=== PATIENT | female | born 1995 | race Caucasian/White ===

== ENCOUNTER 2016-08-21 20:18 | Emergency (ER) | payer SELFPAY ==
[2016-08-21] MEDS ORDERED: PROVENTIL 2.5 MG/3 ML NEB IH ONE ×2 (20:58→21:31)
[2016-08-21] MEDS ORDERED: Pepcid 20 MG VIAL IV ONE ×2 (20:58→21:13)
[2016-08-21] MEDS ORDERED: solu-MEDROL 125 MG IV ONE (20:58)
[2016-08-21] MEDS ORDERED: Sodium Chloride 0.9% 1000 ML 1,000 ML IV STA ×2 (20:58→22:25)
--- NOTE | 2016-08-21 20:58 | ERPHSYRPT ---
- History of Present Illness Time Seen by Provider: 08/21/16 20:54 Source: patient, family Exam Limitations: no limitations Patient Subjective Stated Complaint: pt has been sick with a cough off and on since last monday today she started vomiting -fever 102.5 -she has been taking dayquil for her cough and fever Triage Nursing Assessment: pt is awake and alert and able to answer questions in no acute distress Physician History: 21 year old with history of asthma and now cough with vomiting Timing/Duration: day(s) Activities at Onset: none Severity of Dyspnea-Max: moderate Severity of Dyspnea-Current: moderate Possible Cause: frequent episodes, chronic episodes Modifying Factors: Improves With: albuterol inhaler, coughing Associated Symptoms: cough, fever, wheezing Allergies/Adverse Reactions: No Known Drug Allergies Allergy (Verified 08/21/16 20:36) Hx Tetanus, Diphtheria Vaccination/Date Given: (unknown) Hx Influenza Vaccination/Date Given: No Hx Pneumococcal Vaccination/Date Given: No - Review of Systems Constitutional: Fever, No Chills Eyes: No Symptoms Ears, Nose, & Throat: Nose Congestion Respiratory: Cough, No Dyspnea Cardiac: No Chest Pain, No Edema, No Syncope Abdominal/Gastrointestinal: Nausea, Vomiting, No Abdominal Pain, No Diarrhea Genitourinary Symptoms: No Dysuria Musculoskeletal: No Back Pain, No Neck Pain Skin: No Rash Neurological: No Dizziness, No Focal Weakness, No Sensory Changes Psychological: No Symptoms Endocrine: No Symptoms All Other Systems: Reviewed and Negative - Past Medical History Pertinent Past Medical History: Yes Neurological History: No Pertinent History ENT History: No Pertinent History Cardiac History: No Pertinent History Respiratory History: Asthma Endocrine Medical History: No Pertinent History Musculoskeletal History: No Pertinent History GI Medical History: Gallbladder Disease History: No Pertinent History Psycho-Social History: No Pertinent History Female Reproductive Disorders: No Pertinent History Other Medical History: SEASONAL ALLERGIES. PT HAS HX OF REID'S - Past Surgical History Past Surgical History: Yes Neuro Surgical History: No Pertinent History Cardiac: No Pertinent History Respiratory: No Pertinent History Gastrointestinal: Cholecystectomy Genitourinary: No Pertinent History Musculoskeletal: No Pertinent History Female Surgical History: No Pertinent History - Social History Smoking Status: Current every day smoker How long have you smoked: 4 Exposure to second hand smoke: Yes Drug Use: none Patient Lives Alone: No - Female History Hx Last Menstrual Period: 07/25 Hx Now: Yes ("MIGHT BE ") - Nursing Vital Signs Nursing Vital Signs: Initial Vital Signs Temperature 99.1 F Temperature Source Oral Pulse Rate 99 Respiratory Rate 18 Blood Pressure [Right Arm] 107/62 Pain Intensity 0 - Physical Exam General Appearance: no apparent distress, alert Eye Exam: PERRL/EOMI Ears, Nose, Throat Exam: nasal congestion, pharyngeal erythema Neck Exam: normal inspection, supple Respiratory Exam: airway intact, other (mild airway noise/congestion) Cardiovascular/Chest Exam: normal heart sounds, regular rate/rhythm Abdominal/Gastrointestinal Exam: soft, No tenderness, No distention, No mass Rectal Exam: deferred Extremity Exam: non-tender, normal range of motion, normal inspection, no calf tenderness, no pedal edema Peripheral Pulses Exam: carotid (R): 2+, carotid (L): 2+, femoral (R): 2+, femoral (L): 2+, dorsalis-pedis (R): 2+, dorsalis-pedis (L): 2+ Neurologic Exam: alert, oriented x 3, cooperative, preforms laminator II-XII nml as tested, sensation nml, No motor deficits Skin Exam: normal color, warm, No dry SpO2 Interpretation: normal SpO2: 95 Oxygen Delivery: Room Air - Course Nursing assessment & vital signs reviewed: Yes - Radiology Exams Chest X-ray Interpretation: Reviewed by me, Other (some increased lung markings consistent with increased mucous/cuffing) Ordered Tests: Active Orders 24 hr Category Date Time Status Strategy Manager STAT Care 08/21/16 20:58 Active Clean Catch Urine Specimen STAT Care 08/21/16 20:58 Active IV Insertion STAT Care 08/21/16 20:58 Active Pulse Oximetry (ED) STAT Care 08/21/16 20:58 Active CHEST 2 VIEWS (PA AND LAT) Stat Exams 08/21/16 20:59 Taken AMYLASE Stat Lab 08/21/16 21:15 Completed CBC W DIFF Stat Lab 08/21/16 21:15 Completed CMP Stat Lab 08/21/16 21:15 Completed CULTURE, THROAT Stat Lab 08/21/16 20:41 Received HCG,QUALITATIVE URINE Stat Lab 08/21/16 21:00 Completed LIPASE Stat Lab 08/21/16 21:15 Completed Lactic Acid Urgent Lab 08/21/16 20:58 Completed STREP SCREEN-BETA A Stat Lab 08/21/16 20:41 Completed UA W/ MICROSCOPIC Stat Lab 08/21/16 21:00 Completed Respiratory Nebulizer STAT RT 08/21/16 21:01 Completed Medication Summary Generic Name Dose Route Start Last Admin Trade Name Italia PRN Reason Stop Dose Admin Sodium Chloride 1,000 mls @ 999 mls/hr 08/21/16 22:25 08/21/16 22:31 Sodium Chloride 0.9% 1000 Ml IV 08/21/16 23:25 999 mls/hr .Q1H1M STA Administration Discontinued Medications Generic Name Dose Route Start Last Admin Trade Name Italia PRN Reason Stop Dose Admin Albuterol Sulfate 2.5 mg 08/21/16 20:58 08/21/16 21:32 Proventil 2.5 Mg/3 Ml Neb IH 08/21/16 20:59 2.5 mg STAT ONE Administration Albuterol Sulfate Confirm 08/21/16 21:31 Proventil 2.5 Mg/3 Ml Neb Administered 08/21/16 21:32 Dose 2.5 mg IH .STK-MED ONE Famotidine 20 mg 08/21/16 20:58 08/21/16 21:20 Pepcid 20 Mg Vial IV 08/21/16 20:59 20 mg STAT ONE Administration Famotidine Confirm 08/21/16 21:13 Pepcid 20 Mg Vial Administered 08/21/16 21:14 Dose 20 mg IV .STK-MED ONE Sodium Chloride 1,000 mls @ 999 mls/hr 08/21/16 20:58 08/21/16 21:19 Sodium Chloride 0.9% 1000 Ml IV 08/21/16 21:58 999 mls/hr .Q1H1M STA Administration Sodium Chloride Confirm 08/21/16 21:13 Sodium Chloride 0.9% 1000 Ml Administered 08/21/16 21:14 Dose 1,000 mls @ ud .ROUTE .STK-MED ONE Sodium Chloride Confirm 08/21/16 22:27 Sodium Chloride 0.9% 1000 Ml Administered 08/21/16 22:28 Dose 1,000 mls @ ud .ROUTE .STK-MED ONE Methylprednisolone Sodium Succinate 125 mg 08/21/16 20:58 08/21/16 21:20 Solu-Medrol 125 Mg IV 08/21/16 20:59 125 mg STAT ONE Administration Methylprednisolone Sodium Succinate Confirm 08/21/16 21:13 Solu-Medrol 125 Mg Administered 08/21/16 21:14 Dose 125 mg .ROUTE .STK-MED ONE Ondansetron HCl 4 mg 08/21/16 21:01 08/21/16 21:20 Zofran 4 Mg/2 Ml Vial IV 08/21/16 21:02 4 mg STAT ONE Administration Ondansetron HCl Confirm 08/21/16 21:13 Zofran 4 Mg/2 Ml Vial Administered 08/21/16 21:14 Dose 4 mg .ROUTE .STK-MED ONE Lab/Rad Data: Laboratory Result Diagrams 08/21/16 21:15 08/21/16 21:15 Laboratory Results 08/21/16 08/21/16 08/21/16 Range/Units 21:15 21:15 21:00 WBC 10.4 (4.0-10.5) K/mm3 RBC 4.79 (4.1-5.4) M/mm3 Hgb 13.8 (12.0-16.0) gm/dl Hct 41.1 (35-47) % MCV 85.8 (78-100) fl MCH 28.8 (26-32) pg MCHC 33.6 (32-36) g/dl RDW 12.6 (11.5-14.0) % Plt Count 217 (150-450) K/mm3 MPV 9.7 H (6-9.5) fl Gran % 64.2 (36.0-66.0) % Lymphocytes % 24.5 (24.0-44.0) % Monocytes % 7.6 (0.0-12.0) % Eosinophils % 3.5 (0.00-5.0) % Basophils % 0.2 (0.0-0.4) % Basophils # 0.02 (0-0.4) Sodium 140 (136-145) mEq/L Potassium 3.9 (3.5-5.1) mEq/L Chloride 103 (98-107) mEq/L Carbon Dioxide 25.2 (21-32) mEq/L Anion Gap 15.3 H (5-15) MEQ/L BUN 12 (9-20) mg/dL Creatinine 0.93 (0.55-1.30) mg/dl Estimated GFR > 60 ML/MIN Glucose 84 (70-110) MG/DL Lactic Acid (0.4-2.0) Calcium 8.6 (8.5-10.1) mg/dL Total Bilirubin 0.4 (0.2-1.0) mg/dL AST 41 H (15-37) U/L ALT 96 H (12-78) U/L Alkaline Phosphatase 72 (46-116) U/L Serum Total Protein 7.2 (6.4-8.2) gm/dL Albumin 3.8 (3.4-5.0) g/dL Amylase 31 (25-115) U/L Lipase 75 (73-393) U/L Ur Collection Type Urine Color (YELLOW) Urine Appearance (CLEAR) Urine pH (5-6) Ur Specific [place] (1.005-1.025) Urine Protein (Negative) Urine Glucose (UA) (NEGATIVE) mg/dL Urine Ketones (NEGATIVE) Urine Nitrite (NEGATIVE) Urine Bilirubin (NEGATIVE) Urine Urobilinogen (0-1) mg/dL Urine WBC (Auto) (NEGATIVE) Urine RBC (Auto) (0-5) Nabeel/ul Urine Microscopic RBC (0-2) /HPF Urine Microscopic WBC (0-5) /HPF Ur Epithelial Cells (FEW) /HPF Urine Bacteria (NEGATIVE) /HPF Urine Mucus (NEGATIVE) /HPF Urine HCG, Qual NEGATIVE (Negative) Influenza Type A Ag (NEGATIVE) Influenza Type B Ag (NEGATIVE) RSV (PCR) (Negative) Streptococcus Screen (Negative) Specimen Received 08/21/16 08/21/16 08/21/16 Range/Units 21:00 20:58 20:41 WBC (4.0-10.5) K/mm3 RBC (4.1-5.4) M/mm3 Hgb (12.0-16.0) gm/dl Hct (35-47) % MCV (78-100) fl MCH (26-32) pg MCHC (32-36) g/dl RDW (11.5-14.0) % Plt Count (150-450) K/mm3 MPV (6-9.5) fl Gran % (36.0-66.0) % Lymphocytes % (24.0-44.0) % Monocytes % (0.0-12.0) % Eosinophils % (0.00-5.0) % Basophils % (0.0-0.4) % Basophils # (0-0.4) Sodium (136-145) mEq/L Potassium (3.5-5.1) mEq/L Chloride (98-107) mEq/L Carbon Dioxide (21-32) mEq/L Anion Gap (5-15) MEQ/L BUN (9-20) mg/dL Creatinine (0.55-1.30) mg/dl Estimated GFR ML/MIN Glucose (70-110) MG/DL Lactic Acid 1.3 (0.4-2.0) Calcium (8.5-10.1) mg/dL Total Bilirubin (0.2-1.0) mg/dL AST (15-37) U/L ALT (12-78) U/L Alkaline Phosphatase (46-116) U/L Serum Total Protein (6.4-8.2) gm/dL Albumin (3.4-5.0) g/dL Amylase (25-115) U/L Lipase (73-393) U/L Ur Collection Type CLEAN CATCH Urine Color YELLOW (YELLOW) Urine Appearance SLIGHTLY CLOUDY (CLEAR) Urine pH 6.0 (5-6) Ur Specific [place] 1.020 (1.005-1.025) Urine Protein 100 (Negative) Urine Glucose (UA) NEGATIVE (NEGATIVE) mg/dL Urine Ketones NEGATIVE (NEGATIVE) Urine Nitrite NEGATIVE (NEGATIVE) Urine Bilirubin SMALL (NEGATIVE) Urine Urobilinogen 1 (0-1) mg/dL Urine WBC (Auto) TRACE (NEGATIVE) Urine RBC (Auto) LARGE (0-5) Nabeel/ul Urine Microscopic RBC 25-50 (0-2) /HPF Urine Microscopic WBC 0-2 (0-5) /HPF Ur Epithelial Cells MODERATE (FEW) /HPF Urine Bacteria MODERATE (NEGATIVE) /HPF Urine Mucus SLIGHT (NEGATIVE) /HPF Urine HCG, Qual (Negative) Influenza Type A Ag NEGATIVE (NEGATIVE) Influenza Type B Ag NEGATIVE (NEGATIVE) RSV (PCR) NEGATIVE (Negative) Streptococcus Screen (Negative) Specimen Received 08/21/16:2100 08/21/16 Range/Units 20:41 WBC (4.0-10.5) K/mm3 RBC (4.1-5.4) M/mm3 Hgb (12.0-16.0) gm/dl Hct (35-47) % MCV (78-100) fl MCH (26-32) pg MCHC (32-36) g/dl RDW (11.5-14.0) % Plt Count (150-450) K/mm3 MPV (6-9.5) fl Gran % (36.0-66.0) % Lymphocytes % (24.0-44.0) % Monocytes % (0.0-12.0) % Eosinophils % (0.00-5.0) % Basophils % (0.0-0.4) % Basophils # (0-0.4) Sodium (136-145) mEq/L Potassium (3.5-5.1) mEq/L Chloride (98-107) mEq/L Carbon Dioxide (21-32) mEq/L Anion Gap (5-15) MEQ/L BUN (9-20) mg/dL Creatinine (0.55-1.30) mg/dl Estimated GFR ML/MIN Glucose (70-110) MG/DL Lactic Acid (0.4-2.0) Calcium (8.5-10.1) mg/dL Total Bilirubin (0.2-1.0) mg/dL AST (15-37) U/L ALT (12-78) U/L Alkaline Phosphatase (46-116) U/L Serum Total Protein (6.4-8.2) gm/dL Albumin (3.4-5.0) g/dL Amylase (25-115) U/L Lipase (73-393) U/L Ur Collection Type Urine Color (YELLOW) Urine Appearance (CLEAR) Urine pH (5-6) Ur Specific [place]acle (1.005-1.025) Urine Protein (Negative) Urine Glucose (UA) (NEGATIVE) mg/dL Urine Ketones (NEGATIVE) Urine Nitrite (NEGATIVE) Urine Bilirubin (NEGATIVE) Urine Urobilinogen (0-1) mg/dL Urine WBC (Auto) (NEGATIVE) Urine RBC (Auto) (0-5) Nabeel/ul Urine Microscopic RBC (0-2) /HPF Urine Microscopic WBC (0-5) /HPF Ur Epithelial Cells (FEW) /HPF Urine Bacteria (NEGATIVE) /HPF Urine Mucus (NEGATIVE) /HPF Urine HCG, Qual (Negative) Influenza Type A Ag (NEGATIVE) Influenza Type B Ag (NEGATIVE) RSV (PCR) (Negative) Streptococcus Screen NEGATIVE (Negative) Specimen Received - Progress Progress: improved, re-examined Air Movement: good Progress Note: 08/21/16 22:50 pt is feeling well after treatment and wishes ot go home to f/u PCP without further w/u in hosp /ER at this time; discussed that there still could be undetected patholgoy evolving due to hematuria, elevated LFTs and symptoms in [place] but pt is cmost comfortable with DC at this time, also discussed risk and benefit of ab and she wishes to proceed; 08/21/16 22:54 RUQ is notender and no abd tenderness or mass , pt declines further imaging testing in ER at this time. Blood Culture(s) Obtained: No Antibiotics given: Yes Counseled pt/family regarding: lab results, diagnosis, need for follow-up, rad results - Departure Time of Disposition: 22:52 Departure Disposition: Home Clinical Impression: Asthma with exacerbation, URI (upper respiratory infection), Fever, Hematuria, Vomiting, Elevated liver function tests Condition: Good Critical Care Time: No Referrals: BASHIR SAVAGE MD [Primary Care Provider] - Instructions: Fever (Symptom) -- Adult, Bronchitis, Hematuria, Vomiting -- Adult Additional Instructions: We have not found the precise cause for your fever and vomiting at this time, but are treating for exacerbation of asthma with URI and covering with antibiotics for secondary bacterial respiratory infection or early pneumonia. You also have blood in the urine and elevated liver tests to be rechecked by your Dr.- followup with your dr for recheck and further testing. Return meantime if not improving, vomiting continues, short of breath, trouble swallowing , abdominal pain or other concerns. Prescriptions: Promethazine HCl 25 mg Supp [Phenergan 25 mg Supp] 25 mg NV Q8H PRN PRN # 8 supp.rect PRN Reason: Vomiting Azithromycin [Azithromycin 250 mg Pack] 250 mg PO UD #6 tablet Methylprednisolone Packet [Medrol Dosepack] 4 mg PO UD #30 packet
[2016-08-21] MEDS ORDERED: Zofran 4 MG/2 ML VIAL IV ONE (21:01)
[2016-08-21] MEDS ORDERED: Sodium Chloride 0.9% 1000 ML 1,000 ML ONE ×2 (21:13→22:27)
[2016-08-21] MEDS ORDERED: solu-MEDROL 125 MG ONE (21:13)
[2016-08-21] MEDS ORDERED: Zofran 4 MG/2 ML VIAL ONE (21:13)
[2016-08-21 21:24] LABS: BASOPHIL % 0.2 % (0.0-0.4); Eosinophil % 3.5 % (0.00-5.0); Granulocytes % 64.2 % (36.0-66.0); Lymphocytes % 24.5 % (24.0-44.0); Mean Cell Volume 85.8 fl (78-100); Mean Corpuscular Hemoglobin 28.8 pg (26-32); Mean Platelet Volume 9.7 fl (6-9.5); Monocytes % 7.6 % (0.0-12.0); Platelet Count 217 K/mm3 (150-450); Red Blood Count 4.79 M/mm3 (4.1-5.4); Red Cell Distribution Width 12.6 % (11.5-14.0); White Blood Count 10.4 K/mm3 (4.0-10.5)
[2016-08-21 21:49] LABS: COMPLETE URINE MICROSCOPIC? YES; Collection Type CLEAN CATCH
[2016-08-21 21:50] LABS: Bacteria MODERATE /HPF (NEGATIVE); Epithelial Cells MODERATE /HPF (FEW); Mucus SLIGHT /HPF (NEGATIVE); WBC 0-2 /HPF (0-5)
[2016-08-21 21:52] LABS: ALBUMIN 3.8 g/dL (3.4-5.0); ALKALINE PHOSPHATASE 72 U/L (46-116); ANION GAP 15.3 MEQ/L (5-15); BILIRUBIN,TOTAL 0.4 mg/dL (0.2-1.0); BLOOD UREA NITROGEN 12 mg/dL (9-20); CHLORIDE 103 mEq/L (98-107); Carbon Dioxide 25.2 mEq/L (21-32); Glucose 84 MG/DL (70-110); LIPASE 75 U/L (73-393); Potassium 3.9 mEq/L (3.5-5.1); SGOT/AST 41 U/L (15-37); SGPT/ALT 96 U/L (12-78); SODIUM 140 mEq/L (136-145); Total Protein 7.2 gm/dL (6.4-8.2)
[2016-08-21] MEDS ORDERED: KEFLEX 500 MG PO ONE (23:03)
[2016-08-21] MEDS ORDERED: KEFLEX 500 MG ONE (23:12)
[2016-08-21 23:16] VITALS: BP 116/64; PULSE 95; O2SAT 97
--- NOTE | 2016-08-22 08:54 | XRAY ---
Indication: Fever. Asthma. Comparison: July 31, 2015. PA/lateral chest again demonstrates normal heart, lungs, and bony thorax.
== END 2016-08-21 23:32 | disposition home or self-care (01) ==
LOC: ED 20:18
DX: J45.901 Unspecified asthma with (acute) exacerbation (principal); J06.9 Acute upper respiratory infection, unspecified; R50.9 Fever, unspecified; R31.9 Hematuria, unspecified; R11.10 Vomiting, unspecified; R94.5 Abnormal results of liver function studies
CPT/HCPCS: 36000; 36415; 71020; 80053; 81000; 82150; 83605; 83690; 84703; 85025; 87070; 87430; 87631; 93041; 94640; 96360; 96361; 96374; 96375; 99284; J2405; J2930; A9270-GY

== ENCOUNTER 2018-10-16 00:21 | Emergency (ER) | payer OTHER ==
[2018-10-16 00:44] VITALS: BP 166/89; PULSE 89; O2SAT 96
[2018-10-16] MEDS ORDERED: Augmentin 875-125 Tablet PO ONE (01:05)
--- NOTE | 2018-10-16 01:06 | ERPHSYRPT ---
- History of Present Illness Time Seen by Provider: 10/16/18 00:45 Source: patient Exam Limitations: clinical condition Patient Subjective Stated Complaint: Ringing in liberty ears Triage Nursing Assessment: Patient ambulated back to ED and transferred self to bed. Patient A+O X 3. Patient complains of ringing to liberty ears. Patient states liberty ears were draining and constantly ringing and hasn't had any relief. Patient denies pain or discomfort. Physician History: PATIENT COMPLAINS OF INTERMITTENT RINGING IN BOTH EARS FOR 1 WEEK. DENIES PAIN, FEVER SINUS PRESSURE, COUGH OR SORETHROAT. Timing/Duration: intermittent Severity: mild ENT Location: ear (R), ear (L) Prearrival Treatment: no prearrival treatment Modifying Factors: Improves With: nothing Associated Symptoms: denies symptoms Allergies/Adverse Reactions: No Known Drug Allergies Allergy (Unverified 10/16/18 00:39) Home Medications: Ranitidine HCl [Zantac] 150 mg PO DAILY 10/16/18 [History] Hx Influenza Vaccination/Date Given: No Hx Pneumococcal Vaccination/Date Given: No Immunizations Up to Date: Yes - Review of Systems Constitutional: No Symptoms Eyes: No Symptoms Ears, Nose, & Throat: Tinnitus Respiratory: No Symptoms Cardiac: No Symptoms Endocrine: No Symptoms Hematologic/Lymphatic: No Symptoms - Past Medical History Pertinent Past Medical History: No Neurological History: No Pertinent History ENT History: No Pertinent History Cardiac History: No Pertinent History Respiratory History: Asthma Endocrine Medical History: No Pertinent History Musculoskeletal History: No Pertinent History GI Medical History: No Pertinent History History: No Pertinent History Psycho-Social History: No Pertinent History Male Reproductive Disorders: No Pertinent History - Past Surgical History Past Surgical History: Yes Neuro Surgical History: No Pertinent History Cardiac: No Pertinent History Respiratory: No Pertinent History Gastrointestinal: Cholecystectomy Genitourinary: No Pertinent History Musculoskeletal: No Pertinent History Male Surgical History: No Pertinent History - Social History Smoking Status: Never smoker Exposure to second hand smoke: Yes Drug Use: none Patient Lives Alone: No - Nursing Vital Signs Nursing Vital Signs: Initial Vital Signs Pulse Rate 89 10/16/18 00:39 Respiratory Rate 18 10/16/18 00:39 Blood Pressure 166/89 10/16/18 00:39 O2 Sat by Pulse Oximetry 96 10/16/18 00:39 Pain Scale Pain Intensity 0 - Physical Exam General Appearance: no apparent distress Eye Exam: bilateral eye: normal inspection, PERRL, EOMI Ear Exam: right ear: TM red, left ear: auricle normal, canal normal Throat Exam: normal, pharynx normal Neck Exam: normal inspection Cardiovascular/Respiratory Exam: chest non-tender, normal breath sounds SpO2: 96 Ordered Tests: Medication Summary Discontinued Medications Generic Name Dose Route Start Last Admin Trade Name Italia PRN Reason Stop Dose Admin Amoxicillin/Clavulanate Potassium 875 mg 10/16/18 01:05 10/16/18 01:14 Augmentin 875-125 Tablet PO 10/16/18 01:06 875 mg STAT ONE Administration Amoxicillin/Clavulanate Potassium Confirm 10/16/18 01:13 Augmentin 875-125 Tablet Administered 10/16/18 01:14 Dose 875 mg .ROUTE .STK-MED ONE - Progress Progress Note: 10/16/18 01:21 AUGMENTIN 875MG ORALLY Counseled pt/family regarding: diagnosis, need for follow-up - Departure Departure Disposition: Home Clinical Impression: RIGHT OTITIS MEDIA Condition: Stable Critical Care Time: No Referrals: MARIPOSA SILVA [Primary Care Provider] - Additional Instructions: ANTIBIOTIC AUGMENTIN 875MG TWICE DAILY FOR 10 DAYS. TYLENOL OR MOTRIN NEEDED FOR PAIN OR FEVER. CONSULT YOUR PRIMARY CARE PROVIDER FOR FOLLOWUP IN 1 WEEK. Prescriptions: Amox Tr/Potass Clav. 875 mg [Augmentin 875-125 Tablet] 875 mg PO BID #20 tablet
[2018-10-16] MEDS ORDERED: Augmentin 875-125 Tablet ONE (01:13)
== END 2018-10-16 01:42 | disposition home or self-care (01) ==
LOC: EDSEX → ED 00:21 → MERGE 00:21 → ED 01:42
DX: H66.91 Otitis media, unspecified, right ear (principal)
CPT/HCPCS: 99283; A9270-GY

== ENCOUNTER 2018-12-23 23:22 | Emergency (ER) | payer OTHER ==
[2018-12-24] MEDS ORDERED: Sodium Chloride 0.9% 1000 ML 1,000 ML IV STA (00:49)
[2018-12-24] MEDS ORDERED: Sodium Chloride 0.9% 1000 ML 1,000 ML ONE (00:56)
[2018-12-24 01:47] LABS: BASOPHIL % 0.5 % (0.0-0.4); Basophil (Absolute #) 0.04 (0-0.4); Eosinophil % 7.8 % (0.00-5.0); Eosinophil (Absolute #) 0.64 (0-0.5); Granulocytes % 46.2 % (36.0-66.0); Hematocrit 39.9 % (35-47); Hemoglobin 13.4 gm/dl (12.0-16.0); Lymphocyte (Absolute #) 3.19 (1.0-4.6); Lymphocytes % 38.8 % (24.0-44.0); Mean Cell Volume 84.5 fl (78-100); Mean Corpuscular Hemoglobin 28.4 pg (26-32); Mean Corpuscular Hgb Concent. 33.6 g/dl (32-36); Mean Platelet Volume 10.1 fl (6-9.5); Monocyte (Absolute #) 0.55 (0.0-1.3); Monocytes % 6.7 % (0.0-12.0); Platelet Count 226 K/mm3 (150-450); Red Blood Count 4.72 M/mm3 (4.1-5.4); Red Cell Distribution Width 13.4 % (11.5-14.0); White Blood Count 8.2 K/mm3 (4.0-10.5)
[2018-12-24 01:56] LABS: INR 1.07 (0.8-3.0); PROTIME 12.1 SECONDS (9.95-12.35)
[2018-12-24 02:02] LABS: ALKALINE PHOSPHATASE 61 U/L (38-126); ANION GAP 12.5 MEQ/L (5-15); BLOOD UREA NITROGEN 10 mg/dL (7-17); CHLORIDE 110 mmol/L (98-107); Calcium 9.5 mg/dL (8.4-10.2); Carbon Dioxide 21 mmol/L (22-30); Creatinine 1 0.66 mg/dL (0.52-1.04); Glucose 144 mg/dL (74-106); Potassium 4.6 mmol/L (3.5-5.1); SGOT/AST 49 U/L (14-36); SGPT/ALT 76 U/L (0-35); SODIUM 139 mmol/L (137-145); Total Protein 7.1 g/dL (6.3-8.2)
[2018-12-24 02:07] LABS: Appearance CLEAR (CLEAR); Bilirubin NEGATIVE (NEGATIVE); Blood MODERATE Ery/ul (0-5); Glucose NEGATIVE (NEGATIVE); Ketones NEGATIVE (NEGATIVE); Leukocyte Esterase NEGATIVE (NEGATIVE); Mucus SLIGHT /HPF (NEGATIVE); Nitrite NEGATIVE (NEGATIVE); Protein,Urine Dip NEGATIVE (Negative); Urobilinogen NEGATIVE mg/dL (0-1)
[2018-12-24 02:07] LABS: Erythrocyte Sedimentation Rate 3 mm/hr (0-20)
[2018-12-24] MEDS ORDERED: BENADRYL 50 MG/ML IV ONE (02:12)
[2018-12-24] MEDS ORDERED: SUBLIMAZE 100 MCG/2 ML IV ONE (02:12)
[2018-12-24] MEDS ORDERED: Reglan 10 MG/2 ML IV ONE (02:12)
[2018-12-24] MEDS ORDERED: BENADRYL 50 MG/ML ONE (02:16)
[2018-12-24] MEDS ORDERED: SUBLIMAZE 100 MCG/2 ML ONE (02:17)
[2018-12-24] MEDS ORDERED: Reglan 10 MG/2 ML ONE (02:17)
[2018-12-24 02:23] LABS: Amphetamine,Urine NEGATIVE (NEGATIVE); Barbiturate,Urine NEGATIVE (NEGATIVE); Benzodiazepine,Urine NEGATIVE (NEGATIVE); Cocaine,Urine NEGATIVE (NEGATIVE); Methadone,Urine NEGATIVE (NEGATIVE); Opiate,Urine NEGATIVE (NEGATIVE); PCP,Urine NEGATIVE (NEGATIVE); THC,Urine NEGATIVE (NEGATIVE)
--- NOTE | 2018-12-24 03:28 | ERPHSYRPT ---
- History of Present Illness Time Seen by Provider: 12/23/18 23:55 Source: patient Exam Limitations: no limitations Patient Subjective Stated Complaint: pt c/o REID, dull throbbing pain in frontal lobe radiating to posterior head. states having some dizziness and feel nauseous. had to leave work because it got so bad. "I took 10 extra strength tylenol today throughout the day starting about 7am" Triage Nursing Assessment: A/O, speech clear, resp easy. skin pain warm and dry. denies visual disturbances. states appetite appropriate. Physician History: C/o diffuse, bilateral, frontal headaches, nausea since this afternoon, denies vomiting, but nauseated, no fever, no focal weakness, numbness, slurres speech or visual changes. She had a history of migraine headaches in the past, c/o more severe pain now. She denies sore throat, productive cough, chest pain, SOB , other than dizziness. Timing/Duration: today Quality: throbbing Head Pain Location: frontal Severity of Pain-Max: severe Severity of Pain-Current: severe Recent Head Trauma: no recent headache/trauma Modifying Factors: Improves With: exposure to light Associated Symptoms: dizziness, nausea/vomiting Previous symptoms: different symptoms Allergies/Adverse Reactions: No Known Drug Allergies Allergy (Verified 10/16/18 07:04) Home Medications: Albuterol Common Canister [Proventil Common Canister] 12/24/18 [History] Albuterol Sulfate [Ventolin Hfa] 18 gm IH Q4H PRN PRN 12/24/18 [History] Fluticasone Propionate [Allergy Relief] 50 mcg IH Q4-6HPRN PRN 12/24/18 [History ] Loratadine 10 mg PO DAILY 12/24/18 [History] Hx Tetanus, Diphtheria Vaccination/Date Given: Yes Hx Influenza Vaccination/Date Given: No Hx Pneumococcal Vaccination/Date Given: No Immunizations Up to Date: Yes - Review of Systems Constitutional: No Symptoms Eyes: No Symptoms Ears, Nose, & Throat: Nose Congestion Respiratory: No Symptoms Cardiac: No Symptoms Abdominal/Gastrointestinal: Nausea Genitourinary Symptoms: No Symptoms Musculoskeletal: No Symptoms Skin: No Symptoms Neurological: Dizziness, Headache, No Focal Weakness, No Gait Changes Psychological: No Symptoms All Other Systems: Reviewed and Negative - Past Medical History Pertinent Past Medical History: Yes Neurological History: No Pertinent History ENT History: No Pertinent History Cardiac History: No Pertinent History Respiratory History: Asthma Endocrine Medical History: No Pertinent History Musculoskeletal History: No Pertinent History GI Medical History: No Pertinent History, Gallbladder Disease History: No Pertinent History Psycho-Social History: No Pertinent History Female Reproductive Disorders: No Pertinent History Other Medical History: SEASONAL ALLERGIES. PT HAS HX OF REID'S - Past Surgical History Past Surgical History: Yes Neuro Surgical History: No Pertinent History Cardiac: No Pertinent History Respiratory: No Pertinent History Gastrointestinal: Cholecystectomy Genitourinary: No Pertinent History Musculoskeletal: No Pertinent History Female Surgical History: No Pertinent History - Social History Smoking Status: Current every day smoker How long have you smoked: 4 Exposure to second hand smoke: Yes Drug Use: none Patient Lives Alone: No - Female History Hx Last Menstrual Period: unknown Hx Now: No (very irregular PCOS) - Nursing Vital Signs Nursing Vital Signs: Initial Vital Signs Temperature 98.1 F 12/23/18 23:23 Pulse Rate 82 12/23/18 23:23 Respiratory Rate 16 12/23/18 23:23 Blood Pressure 147/90 12/23/18 23:23 O2 Sat by Pulse Oximetry 97 12/23/18 23:23 Pain Scale Pain Intensity 6 - Physical Exam General Appearance: no apparent distress Eye Exam: PERRL/EOMI, eyes nml inspection Ears, Nose, Throat Exam: normal ENT inspection, pharynx normal, moist mucous membranes Neck Exam: normal inspection, non-tender, supple, full range of motion, No carotid bruit Respiratory Exam: normal breath sounds, lungs clear, airway intact, No chest tenderness Cardiovascular Exam: regular rate/rhythm, normal heart sounds, normal peripheral pulses, No murmur Gastrointestinal/Abdominal Exam: soft, normal bowel sounds, No tenderness Back Exam: normal inspection, No CVA tenderness billing analyst Exam: normal speech, PERRL Coordination/Gait Exam: normal finger to nose Motor/Sensory Exam: no motor deficit DTR Exam: bicep (R): 2+, bicep (L): 2+, knee (R): 2+, knee (L): 2+, ankle (R): 2 +, ankle (L): 2+ Skin Exam: normal color, warm, dry, No rash, No petechiae, No cyanosis, No diaphoresis Lymphatic Exam: No adenopathy SpO2 Interpretation: normal SpO2: 93 O2 Delivery: Room Air - Course Nursing assessment & vital signs reviewed: Yes EKG Interpreted by Me: RATE - CT Exams Head CT Interpretation: Negative, Tele-radiologist Report Ordered Tests: Active Orders 24 hr Category Date Time Status IV Insertion STAT Care 12/24/18 00:49 Active HEAD WITHOUT CONTRAST [CT] Stat Exams 12/24/18 00:53 Taken CBC W DIFF Stat Lab 12/24/18 01:45 Completed CMP Stat Lab 12/24/18 01:45 Completed Erythrocyte Sedimentation Rate Stat Lab 12/24/18 01:45 Completed HCG,QUALITATIVE URINE Stat Lab 12/24/18 02:01 Completed PROTIME WITH INR Stat Lab 12/24/18 01:45 Completed UA W/RFX UR CULTURE Stat Lab 12/24/18 02:01 Completed Urine Triage Profile Stat Lab 12/24/18 02:01 Completed Medication Summary Discontinued Medications Generic Name Dose Route Start Last Admin Trade Name Freq PRN Reason Stop Dose Admin Diphenhydramine HCl 25 mg 12/24/18 02:12 12/24/18 02:23 Benadryl 50 Mg/Ml IV 12/24/18 02:13 25 mg STAT ONE Administration Diphenhydramine HCl Confirm 12/24/18 02:16 Benadryl 50 Mg/Ml Administered 12/24/18 02:17 Dose 50 mg .ROUTE .STK-MED ONE Fentanyl Citrate 50 mcg 12/24/18 02:12 12/24/18 02:34 Sublimaze 100 Mcg/2 Ml IV 12/24/18 02:13 50 mcg STAT ONE Administration Fentanyl Citrate Confirm 12/24/18 02:17 Sublimaze 100 Mcg/2 Ml Administered 12/24/18 02:18 Dose 100 mcg .ROUTE .STK-MED ONE Sodium Chloride 1,000 mls @ 999 mls/hr 12/24/18 00:49 12/24/18 02:58 Sodium Chloride 0.9% 1000 Ml IV 12/24/18 01:49 Infused .Q1H1M STA Infusion Sodium Chloride Confirm 12/24/18 00:56 Sodium Chloride 0.9% 1000 Ml Administered 12/24/18 00:57 Dose 1,000 mls @ ud .ROUTE .STK-MED ONE Metoclopramide HCl 10 mg 12/24/18 02:12 12/24/18 02:19 Reglan 10 Mg/2 Ml IV 12/24/18 02:13 10 mg STAT ONE Administration Metoclopramide HCl Confirm 12/24/18 02:17 Reglan 10 Mg/2 Ml Administered 12/24/18 02:18 Dose 10 mg .ROUTE .STK-MED ONE Lab/Rad Data: Laboratory Result Diagrams 12/24/18 01:45 12/24/18 01:45 Laboratory Results 12/24/18 12/24/18 12/24/18 Range/Units 02:01 02:01 02:01 WBC (4.0-10.5) K/mm3 RBC (4.1-5.4) M/mm3 Hgb (12.0-16.0) gm/dl Hct (35-47) % MCV (78-100) fl MCH (26-32) pg MCHC (32-36) g/dl RDW (11.5-14.0) % Plt Count (150-450) K/mm3 MPV (6-9.5) fl Gran % (36.0-66.0) % Eos # (Auto) (0-0.5) Absolute Lymphs (auto) (1.0-4.6) Absolute Monos (auto) (0.0-1.3) Lymphocytes % (24.0-44.0) % Monocytes % (0.0-12.0) % Eosinophils % (0.00-5.0) % Basophils % (0.0-0.4) % Absolute Granulocytes (1.4-6.9) Basophils # (0-0.4) ESR (0-20) mm/hr PT (9.95-12.35) SECONDS INR (0.8-3.0) Sodium (137-145) mmol/L Potassium (3.5-5.1) mmol/L Chloride (98-107) mmol/L Carbon Dioxide (22-30) mmol/L Anion Gap (5-15) MEQ/L BUN (7-17) mg/dL Creatinine (0.52-1.04) mg/dL Estimated GFR ML/MIN Glucose (74-106) mg/dL Calcium (8.4-10.2) mg/dL Total Bilirubin (0.2-1.3) mg/dL AST (14-36) U/L ALT (0-35) U/L Alkaline Phosphatase (38-126) U/L Serum Total Protein (6.3-8.2) g/dL Albumin (3.5-5.0) g/dL Urine Color YELLOW (YELLOW) Urine Appearance CLEAR (CLEAR) Urine pH 5.0 (5-6) Ur Specific Parnell 1.020 (1.005-1.025) Urine Protein NEGATIVE (Negative) Urine Ketones NEGATIVE (NEGATIVE) Urine Blood MODERATE (0-5) Nabeel/ul Urine Nitrite NEGATIVE (NEGATIVE) Urine Bilirubin NEGATIVE (NEGATIVE) Urine Urobilinogen NEGATIVE (0-1) mg/dL Ur Leukocyte Esterase NEGATIVE (NEGATIVE) Urine WBC (Auto) NONE (0-5) /HPF Urine RBC (Auto) 6-10 (0-2) /HPF U Epithel Cells (Auto) NONE (FEW) /HPF Urine Bacteria (Auto) NONE (NEGATIVE) /HPF Urine Mucus (Auto) SLIGHT (NEGATIVE) /HPF Urine Culture Reflexed NO (NO) Urine Glucose NEGATIVE (NEGATIVE) mg/dL Urine HCG, Qual NEGATIVE (Negative) Urine Opiates Level NEGATIVE (NEGATIVE) Ur Methadone NEGATIVE (NEGATIVE) Urine Barbiturates NEGATIVE (NEGATIVE) Ur Phencyclidine (PCP) NEGATIVE (NEGATIVE) Urine Amphetamine NEGATIVE (NEGATIVE) U Benzodiazepine Level NEGATIVE (NEGATIVE) Urine Cocaine NEGATIVE (NEGATIVE) Urine Marijuana (THC) NEGATIVE (NEGATIVE) 12/24/18 12/24/18 12/24/18 Range/Units 01:45 01:45 01:45 WBC 8.2 (4.0-10.5) K/mm3 RBC 4.72 (4.1-5.4) M/mm3 Hgb 13.4 (12.0-16.0) gm/dl Hct 39.9 (35-47) % MCV 84.5 (78-100) fl MCH 28.4 (26-32) pg MCHC 33.6 (32-36) g/dl RDW 13.4 (11.5-14.0) % Plt Count 226 (150-450) K/mm3 MPV 10.1 H (6-9.5) fl Gran % 46.2 (36.0-66.0) % Eos # (Auto) 0.64 H (0-0.5) Absolute Lymphs (auto) 3.19 (1.0-4.6) Absolute Monos (auto) 0.55 (0.0-1.3) Lymphocytes % 38.8 (24.0-44.0) % Monocytes % 6.7 (0.0-12.0) % Eosinophils % 7.8 H (0.00-5.0) % Basophils % 0.5 (0.0-0.4) % Absolute Granulocytes 3.80 (1.4-6.9) Basophils # 0.04 (0-0.4) ESR 3 (0-20) mm/hr PT 12.1 (9.95-12.35) SECONDS INR 1.07 (0.8-3.0) Sodium 139 (137-145) mmol/L Potassium 4.6 (3.5-5.1) mmol/L Chloride 110 H (98-107) mmol/L Carbon Dioxide 21 L (22-30) mmol/L Anion Gap 12.5 (5-15) MEQ/L BUN 10 (7-17) mg/dL Creatinine 0.66 (0.52-1.04) mg/dL Estimated GFR > 60.0 ML/MIN Glucose 144 H (74-106) mg/dL Calcium 9.5 (8.4-10.2) mg/dL Total Bilirubin 0.50 (0.2-1.3) mg/dL AST 49 H (14-36) U/L ALT 76 H (0-35) U/L Alkaline Phosphatase 61 (38-126) U/L Serum Total Protein 7.1 (6.3-8.2) g/dL Albumin 4.0 (3.5-5.0) g/dL Urine Color (YELLOW) Urine Appearance (CLEAR) Urine pH (5-6) Ur Specific Parnell (1.005-1.025) Urine Protein (Negative) Urine Ketones (NEGATIVE) Urine Blood (0-5) Nabeel/ul Urine Nitrite (NEGATIVE) Urine Bilirubin (NEGATIVE) Urine Urobilinogen (0-1) mg/dL Ur Leukocyte Esterase (NEGATIVE) Urine WBC (Auto) (0-5) /HPF Urine RBC (Auto) (0-2) /HPF U Epithel Cells (Auto) (FEW) /HPF Urine Bacteria (Auto) (NEGATIVE) /HPF Urine Mucus (Auto) (NEGATIVE) /HPF Urine Culture Reflexed (NO) Urine Glucose (NEGATIVE) mg/dL Urine HCG, Qual (Negative) Urine Opiates Level (NEGATIVE) Ur Methadone (NEGATIVE) Urine Barbiturates (NEGATIVE) Ur Phencyclidine (PCP) (NEGATIVE) Urine Amphetamine (NEGATIVE) U Benzodiazepine Level (NEGATIVE) Urine Cocaine (NEGATIVE) Urine Marijuana (THC) (NEGATIVE) - Progress Progress: improved Air Movement: good Progress Note: 12/24/18 03:37 Pt was started on IV Benadryl, Reglan 10 mg IV Fentanyl, states, he feels better , did not vomit afebrile, She was afebrile to , discussed our findings, she is being discharged home on PO Amoxicillin to rest x 3-4 days, drink polenty of fluids, and gargle fgrequently with saline solution. Blood Culture(s) Obtained: No Antibiotics given: No Counseled pt/family regarding: lab results, diagnosis, need for follow-up, rad results - Departure Departure Disposition: Home Clinical Impression: Headache Qualifiers: Headache type: unspecified Headache chronicity pattern: acute headache Intractability: not intractable Qualified Code(s): R51 - Headache Sinusitis Qualifiers: Sinusitis location: unspecified location Chronicity: acute Recurrence: non- recurrent Qualified Code(s): J01.90 - Acute sinusitis, unspecified Condition: Stable Critical Care Time: No Referrals: MARIPOSA SILVA [Primary Care Provider] - Instructions: Headache, Adult (DC), Sinusitis, Adult (DC) Additional Instructions: Rest x 1-2 days, drink plenty of fluids, and follow up with your physician this week, return if severe headaches, vomiting, lethargy, fever> 102 F! Prescriptions: Butalbital/Acetaminophen [Acetaminophn-Butalbital 325-50] 1 each PO Q6H PRN PRN #10 tablet PRN Reason: Headache Amoxicillin 875 mg PO BID #20 tablet Cetirizine HCl [Zyrtec] 10 mg PO DAILY #30 tab.chew
[2018-12-24 04:04] VITALS: BP 127/75; PULSE 81; O2SAT 95
--- NOTE | 2018-12-24 12:34 | XRAY ---
Exam: CT of the head without IV contrast from 12/24/2018. CTDI: 68.81 Comparison: None. Indication: 23-year-old female with severe headaches, complains of dull, throbbing pain within frontal lobe radiating to posterior head, and dizziness with nausea, denies visual disturbances, history of polycystic ovaries. Technique: Non-IV contrast axial images were obtained through the brain. Reconstructed coronal and sagittal images were created and reviewed. Findings: The ventricles appear of normal size and configuration. No focal mass effect or midline shift is seen. I see no evidence of acute intracranial bleed or abnormal extra-axial fluid collection. The olsen matter-white matter interfaces appear unremarkable. No focal low attenuation edema or territorial low attenuation infarct is seen. The cortical sulci and basilar cisterns appear unremarkable. Soft tissue or fluid density is seen filling the entire visualized upper right maxillary sinus. The remainder of the visualized paranasal sinuses appears unremarkable. The mastoid air cells are clear without effusion. The calvarium of the skull appears intact. Impression: 1. No acute intracranial bleed or other acute intracranial process is seen. 2. Soft tissue or fluid density fills the entire visualized upper portion of the right maxillary sinus. This is a consistent with acute or chronic sinusitis. Correlate clinically.
== END 2018-12-24 04:10 | disposition home or self-care (01) ==
LOC: ED 23:22
DX: R51 Headache (principal); J01.90 Acute sinusitis, unspecified; R11.0 Nausea; Z79.899 Other long term (current) drug therapy; R42 Dizziness and giddiness
CPT/HCPCS: 36415; 70450; 80053; 80307; 81001; 84703; 85025; 85610; 85652; 96360; 96374; 96375; 99284; J1200; J3010

== ENCOUNTER 2019-04-02 17:17 | Emergency (ER) | payer BC, OTHER ==
--- NOTE | 2019-04-02 17:23 | ERPHSYRPT ---
- History of Present Illness Time Seen by Provider: 04/02/19 17:23 Source: patient Exam Limitations: no limitations Physician History: 23 y/o white female with h/o chronic headaches with associated dizziness, presents with same today. pt seen here 12/24/18 for same issue. pt had negative ct head at that time. pt denies head trauma. pt has a h/o seasonal allergies. pt denies h/o htn Timing/Duration: week(s) (1) Quality: aching Head Pain Location: global Severity of Pain-Max: moderate Severity of Pain-Current: moderate Recent Head Trauma: no recent headache/trauma Modifying Factors: Improves With: exposure to light Associated Symptoms: sensitive to light, No neck pain, No stiff neck Previous symptoms: same symptoms as today Allergies/Adverse Reactions: No Known Drug Allergies Allergy (Verified 10/16/18 07:04) Home Medications: Albuterol Sulfate [Ventolin Hfa] 18 gm IH Q4H PRN PRN 12/24/18 [History] Loratadine 10 mg PO DAILY 12/24/18 [History] Hx Tetanus, Diphtheria Vaccination/Date Given: Yes Hx Influenza Vaccination/Date Given: No Hx Pneumococcal Vaccination/Date Given: No - Review of Systems Constitutional: No Symptoms Eyes: No Symptoms Ears, Nose, & Throat: No Symptoms Respiratory: No Symptoms Cardiac: No Symptoms Abdominal/Gastrointestinal: No Symptoms Genitourinary Symptoms: No Symptoms Musculoskeletal: No Symptoms Skin: No Symptoms Neurological: No Symptoms Psychological: No Symptoms Endocrine: No Symptoms Hematologic/Lymphatic: No Symptoms Immunological/Allergic: No Symptoms All Other Systems: Reviewed and Negative - Past Medical History Pertinent Past Medical History: Yes Neurological History: No Pertinent History ENT History: No Pertinent History Cardiac History: No Pertinent History Respiratory History: Asthma Endocrine Medical History: No Pertinent History Musculoskeletal History: No Pertinent History GI Medical History: No Pertinent History, Gallbladder Disease History: No Pertinent History Psycho-Social History: No Pertinent History Female Reproductive Disorders: No Pertinent History Other Medical History: SEASONAL ALLERGIES. PT HAS HX OF REID'S - Past Surgical History Past Surgical History: Yes Neuro Surgical History: No Pertinent History Cardiac: No Pertinent History Respiratory: No Pertinent History Gastrointestinal: Cholecystectomy Genitourinary: No Pertinent History Musculoskeletal: No Pertinent History Female Surgical History: No Pertinent History - Social History Smoking Status: Current every day smoker How long have you smoked: 4 Exposure to second hand smoke: Yes Drug Use: none Patient Lives Alone: No - Nursing Vital Signs Nursing Vital Signs: Initial Vital Signs Temperature 98.1 F 04/02/19 17:21 Pulse Rate 114 H 04/02/19 17:21 Respiratory Rate 20 04/02/19 17:21 Blood Pressure 160/97 04/02/19 17:21 O2 Sat by Pulse Oximetry 99 04/02/19 17:21 Pain Scale Pain Intensity 7 - Physical Exam General Appearance: mild distress, alert, anxiety Eye Exam: PERRL/EOMI, eyes nml inspection Ears, Nose, Throat Exam: normal ENT inspection, TMs normal, moist mucous membranes Neck Exam: normal inspection, non-tender, supple, full range of motion Respiratory Exam: No chest tenderness Gastrointestinal/Abdominal Exam: No tenderness Back Exam: normal inspection, normal range of motion, No CVA tenderness, No vertebral tenderness Extremity Exam: normal inspection, normal range of motion Mental Status Exam: alert, oriented x 3, cooperative credit consultant Exam: normal hearing, normal speech, PERRL Coordination/Gait Exam: normal finger to nose, normal gait, normal cerebellar function Motor/Sensory Exam: no motor deficit, no sensory deficit, no pronator drift Skin Exam: normal color, warm, dry Lymphatic Exam: No adenopathy SpO2 Interpretation: normal O2 Delivery: Room Air - Course Nursing assessment & vital signs reviewed: Yes - Progress Progress: unchanged Air Movement: good Blood Culture(s) Obtained: No Antibiotics given: No Counseled pt/family regarding: diagnosis, need for follow-up - Departure Departure Disposition: Home Clinical Impression: Headache, Hypertension Condition: Stable Critical Care Time: No Referrals: MARIPOSA SILVA [Primary Care Provider] - Additional Instructions: follow up with primary doctor for further management of your high blood pressue and recurrent headaches. call tomorrow to arrange for an appointment. keep a daily log of your morning and evening blood pressure and present to your primary doctor for further management.
[2019-04-02] MEDS ORDERED: Norco 10/325 MG Tablet PO ONE (17:37)
[2019-04-02] MEDS ORDERED: ZOFRAN ODT 4 MG PO ONE (17:37)
[2019-04-02] MEDS ORDERED: ZOFRAN ODT 4 MG ONE (17:41)
[2019-04-02] MEDS ORDERED: Norco 10/325 MG Tablet ONE (17:41)
[2019-04-02 18:05] VITALS: BP 111/80; PULSE 94; O2SAT 98
== END 2019-04-02 18:12 | disposition home or self-care (01) ==
LOC: ED 17:17
DX: R51 Headache (principal); I10 Essential (primary) hypertension
CPT/HCPCS: 99283; Q0162; A9270-GY

== ENCOUNTER 2019-04-25 18:53 | Emergency (ER) | payer SELFPAY ==
[2019-04-25 19:12] VITALS: O2SAT 98
--- NOTE | 2019-04-25 19:19 | ERPHSYRPT ---
- History of Present Illness Time Seen by Provider: 04/25/19 19:05 Source: patient Exam Limitations: no limitations Patient Subjective Stated Complaint: pt fell while walking down stairs in the rain, now has pain in r ankle Triage Nursing Assessment: pt alert and oriented, pain in r ankle rated 8/10, some swelling present in r ankle. states she has previouslt fractured right or left ankle when she was young but cannot remember which. Physician History: 23 y/o obese white female presents with right ankle pain after slipping on her porch. denies head injury Method of Injury: fell Occurred: just prior to arrival Quality: aching, throbbing Severity of Pain-Max: moderate Severity of Pain-Current: moderate Lower Extremities Pain: ankle: right Modifying Factors: Improves With: movement Associated Symptoms: other (hurts to bear weight) Allergies/Adverse Reactions: No Known Drug Allergies Allergy (Verified 04/25/19 19:12) Home Medications: Albuterol Sulfate [Ventolin Hfa] 18 gm IH Q4H PRN PRN 12/24/18 [History] Hx Tetanus, Diphtheria Vaccination/Date Given: Yes Hx Influenza Vaccination/Date Given: No Hx Pneumococcal Vaccination/Date Given: No - Review of Systems Constitutional: No Symptoms Eyes: No Symptoms Ears, Nose, & Throat: No Symptoms Respiratory: No Symptoms Cardiac: No Symptoms Abdominal/Gastrointestinal: No Symptoms Genitourinary Symptoms: No Symptoms Musculoskeletal: Injury (right ankle), Joint Swelling (mild) Skin: No Symptoms Neurological: No Symptoms Psychological: No Symptoms Endocrine: No Symptoms Hematologic/Lymphatic: No Symptoms Immunological/Allergic: No Symptoms All Other Systems: Reviewed and Negative - Past Medical History Pertinent Past Medical History: Yes Neurological History: No Pertinent History ENT History: No Pertinent History Cardiac History: No Pertinent History Respiratory History: Asthma Endocrine Medical History: No Pertinent History Musculoskeletal History: No Pertinent History GI Medical History: No Pertinent History, Gallbladder Disease History: No Pertinent History Psycho-Social History: No Pertinent History Female Reproductive Disorders: No Pertinent History Other Medical History: SEASONAL ALLERGIES. PT HAS HX OF REID'S - Past Surgical History Past Surgical History: Yes Neuro Surgical History: No Pertinent History Cardiac: No Pertinent History Respiratory: No Pertinent History Gastrointestinal: Cholecystectomy Genitourinary: No Pertinent History Musculoskeletal: No Pertinent History Female Surgical History: No Pertinent History - Social History Smoking Status: Current every day smoker How long have you smoked: 4 Exposure to second hand smoke: Yes Drug Use: none Patient Lives Alone: No - Female History Hx Last Menstrual Period: 03/04/19 Hx Now: (unknown) - Nursing Vital Signs Nursing Vital Signs: Initial Vital Signs Temperature 98.8 F 04/25/19 18:59 Pulse Rate 107 H 04/25/19 18:59 Respiratory Rate 18 04/25/19 18:59 O2 Sat by Pulse Oximetry 98 04/25/19 18:59 Pain Scale Pain Intensity 8 - Physical Exam General Appearance: no apparent distress, alert, anxiety Eyes, Ears, Nose, Throat Exam: normal ENT inspection, moist mucous membranes Neck Exam: normal inspection, non-tender, supple, full range of motion Cardiovascular/Respiratory Exam: chest non-tender Gastrointestinal/Abdominal Exam: non-tender Back Exam: normal inspection, normal range of motion, No CVA tenderness, No vertebral tenderness Hips Exam: bilateral: non-tender, normal inspection, normal range of motion, no evidence of injury Legs Exam: bilateral leg: non-tender, normal inspection, normal range of motion , no evidence of injury Knees Exam: bilateral knee: non-tender, normal inspection, normal range of motion, no evidence of injury Ankle Exam: right ankle: soft tissue tenderness, swelling (lateral malleolus region), left ankle: non-tender, normal inspection, normal range of motion, no evidence of injury Foot Exam: bilateral foot: non-tender, normal inspection, normal range of motion , no evidence of injury Neuro/Tendon Exam: normal sensation, normal motor functions, normal tendon functions Mental Status Exam: alert, oriented x 3, cooperative Skin Exam: normal color, warm, dry SpO2 Interpretation: normal SpO2: 98 O2 Delivery: Room Air - Course Nursing assessment & vital signs reviewed: Yes Ordered Tests: Active Orders 24 hr Category Date Time Status ANKLE (3 VIEWS) Stat Exams 04/25/19 19:32 Taken - Progress Progress Note: 04/25/19 20:07 no acute fx or dislocation on right ankle xray. Counseled pt/family regarding: diagnosis, need for follow-up, rad results - Departure Departure Disposition: Home Clinical Impression: Right ankle sprain Condition: Stable Critical Care Time: No Referrals: MARIPOSA SILVA [Primary Care Provider] - [facility] [id number] [facility] - TRUE SALGUERO NP [NON-STAFF PHY W/O PRIVILEGES] - Additional Instructions: ice pack 3 times daily for 3 days. tylenol and ibuprofen for pain. follow up with [facility] for further management
[2019-04-25 20:44] VITALS: BP 154/94; PULSE 97
--- NOTE | 2019-04-26 09:07 | XRAY ---
Indication: Pain following twisting injury/fall. Comparison: None 3 views of the right ankle demonstrates mild soft tissue swelling and tiny posterior talus accessory ossicle. No other bony, articular, or soft tissue abnormalities.
== END 2019-04-25 20:44 | disposition home or self-care (01) ==
LOC: ED 18:53
DX: S93.401A Sprain of unspecified ligament of right ankle, initial encounter (principal); W10.9XXA Fall (on) (from) unspecified stairs and steps, initial encounter; M25.571 Pain in right ankle and joints of right foot
CPT/HCPCS: 73610; 99283

== ENCOUNTER 2022-02-16 10:13 | Emergency (ER) | payer OTHER ==
--- NOTE | 2022-02-16 11:09 | ERPHSYRPT ---
- History of Present Illness Source: patient, EMS Exam Limitations: no limitations Patient Subjective Stated Complaint: Back pain Triage Nursing Assessment: Patient brought into ED per EMS and transferred to bed with assist of 4. Patient A+O x3. Patient's skin pink, warm and dry. Patient complains of lower back pain that goes down right leg 10. Patient recently dx with sciatica and patient states turned wrong causing a lot of pain. Physician History: 26 yo WF w lumbar pain radiating to her RLE x 6 wks. Pt is under care of her [employer] for the pain and was seen at [facility] 2 days ago for the same problem. Pt denies trauma but does give a vague h/o falls over the last couple of months. pain is 10 on scale and worse w movement. She denies dysuria/hematuria/fever/incontinence of stool-urine/foot drop. Pt given Toradol/Fentanyl in route per EMS Timing/Duration: other (6wks) Method of Injury: other (Denies acute injury) Quality: sharp Back Pain Location: lumbar spine Back Pain Radiation: buttocks, lower legs (RLE) Severity of Pain-Max: severe Severity of Pain-Current: severe Modifying Factors: Improves With: movement Associated Symptoms: lower back pain, No fever, No chills, No sweating, No urinary incontinence, No loss of bowel control, No constipation, No nausea, No vomiting, No problems urinating, No light-headedness, No dizziness, No numbness in legs/feet, No weakness, No sensory/motor loss, No tingling in legs/feet, No muscle spasms Previous symptoms: same symptoms as today Allergies/Adverse Reactions: No Known Drug Allergies Allergy (Verified 02/16/22 10:16) Home Medications: Albuterol Sulfate [Ventolin Hfa] 18 gm IH Q4H PRN PRN 12/24/18 [History] Hx Tetanus, Diphtheria Vaccination/Date Given: Yes Hx Influenza Vaccination/Date Given: No Hx Pneumococcal Vaccination/Date Given: No Immunizations Up to Date: Yes Travel Risk - International Travel Have you traveled outside of the country in past 3 weeks: No - Coronavirus Screening Are you exhibiting any of the following symptoms?: No Close contact with a COVID-19 positive Pt in past 14-21 Days: Yes - Vaccine Status Have you recieved a Covid-19 vaccination: Yes Compensation Adjuster: Moderna - Vaccination Dates Date of 2cond Vaccination (if applicable): na - Review of Systems Constitutional: No Symptoms Eyes: No Symptoms Ears, Nose, & Throat: No Symptoms Respiratory: No Symptoms Cardiac: No Symptoms Abdominal/Gastrointestinal: No Symptoms Genitourinary Symptoms: No Symptoms Musculoskeletal: No Symptoms, Back Pain Skin: No Symptoms Neurological: No Symptoms Psychological: No Symptoms Endocrine: No Symptoms Hematologic/Lymphatic: No Symptoms Immunological/Allergic: No Symptoms - Past Medical History Pertinent Past Medical History: Yes Neurological History: No Pertinent History ENT History: No Pertinent History Cardiac History: No Pertinent History Respiratory History: Asthma Endocrine Medical History: No Pertinent History Musculoskeletal History: No Pertinent History GI Medical History: No Pertinent History, Gallbladder Disease History: No Pertinent History Psycho-Social History: No Pertinent History Female Reproductive Disorders: No Pertinent History Other Medical History: SEASONAL ALLERGIES. PT HAS HX OF REID'S - Past Surgical History Past Surgical History: Yes Neuro Surgical History: No Pertinent History Cardiac: No Pertinent History Respiratory: No Pertinent History Gastrointestinal: Cholecystectomy Genitourinary: No Pertinent History Musculoskeletal: No Pertinent History Female Surgical History: No Pertinent History - Social History Smoking Status: Never smoker How long have you smoked: 4 Exposure to second hand smoke: No Drug Use: none Patient Lives Alone: No - Female History Hx Last Menstrual Period: two weeks ago Hx Now: No - Nursing Vital Signs Nursing Vital Signs: Initial Vital Signs Temperature 97.6 F 02/16/22 10:17 Pulse Rate 77 02/16/22 10:17 Respiratory Rate 18 02/16/22 10:17 Blood Pressure 180/77 02/16/22 10:17 O2 Sat by Pulse Oximetry 96 02/16/22 10:17 Pain Scale Pain Intensity 5 Hypertensive - Physical Exam General Appearance: no apparent distress (In pain) Eye Exam: PERRL/EOMI, eyes nml inspection Ears, Nose, Throat Exam: normal ENT inspection, TMs normal, pharynx normal, moist mucous membranes Neck Exam: normal inspection, non-tender, supple, full range of motion, No meningismus, No mass, No Brudzinski, No Kernig's, No carotid bruit Respiratory Exam: normal breath sounds, lungs clear, airway intact Cardiovascular Exam: regular rate/rhythm, normal heart sounds, normal peripheral pulses, capillary refill <2 sec, No murmur Gastrointestinal Exam: soft, normal bowel sounds, other (Morbidly obese), No tenderness Back Exam: normal inspection, No CVA tenderness, No vertebral tenderness Extremity Exam: normal inspection, normal range of motion, pelvis stable Peripheral Pulses: carotid (R): 2+, carotid (L): 2+ Neurologic Exam: alert, oriented x 3, cooperative, merchandise supervisor II-XII nml as tested, normal mood/affect, nml cerebellar function, nml station & gait, sensation nml Skin Exam: normal color, warm, dry Lymphatic Exam: No adenopathy SpO2 Interpretation: normal SpO2: 96 O2 Delivery: Room Air - Course Nursing assessment & vital signs reviewed: Yes Ordered Tests: Active Orders 24 hr Category Date Time Status AMA [Release AMA] OM.NOW Care 02/16/22 13:21 Completed IV Insertion STAT Care 02/16/22 11:06 Completed HCG,QUALITATIVE URINE Stat Lab 02/16/22 11:28 Completed UA W/RFX CULTURE Stat Lab 02/16/22 11:28 Completed Medication Summary Discontinued Medications Generic Name Dose Route Start Last Admin Trade Name Italia PRN Reason Stop Dose Admin Droperidol 1.25 mg 02/16/22 10:57 02/16/22 11:04 Droperidol 5 Mg/2 Ml Vial IV 02/16/22 10:58 1.25 mg STAT ONE Administration Droperidol Confirm 02/16/22 11:03 Droperidol 5 Mg/2 Ml Vial Administered 02/16/22 11:04 Dose 5 mg .ROUTE .STK-MED ONE Ketamine HCl 20 mg 02/16/22 12:29 02/16/22 12:35 Ketamine Hcl 50 Mg/Ml IM 02/16/22 12:30 20 mg STAT ONE Administration Lab/Rad Data: Laboratory Results 02/16/22 02/16/22 Range/Units 11:28 11:28 Urinalys Dipstick Clnc MAIN LAB Urine Color YELLOW (YELLOW) Urine Appearance CLEAR (CLEAR) Urine pH 5.5 (5-6) Ur Specific [place] >=1.030 (1.005-1.025) POC Urine Protein Conf 100 (Negative) Urine Ketones NEGATIVE (NEGATIVE) Urine Nitrite NEGATIVE (NEGATIVE) Urine Bilirubin NEGATIVE (NEGATIVE) Urine Urobilinogen 0.2 (0-1) mg/dL Urine Leukocytes NEGATIVE (NEGATIVE) Urine WBC (Auto) 3-5 (0-5) /HPF Urine RBC (Auto) 11-15 (0-2) /HPF U Epithel Cells (Auto) RARE (FEW) /HPF Urine Bacteria (Auto) NONE (NEGATIVE) /HPF Urine RBC MODERATE (0-5) Nabeel/ul Urine Mucus (Auto) SLIGHT (NEGATIVE) /HPF Ur Culture Indicated? NO Urine Glucose NEGATIVE (NEGATIVE) mg/dL Urine HCG, Qual NEGATIVE (Negative) - Progress Progress: improved Progress Note: 02/16/22 13:55 Droperidol 1.25mg Iv w mild improvement Ketamine 20mg IM x1 w improvement Pt decided to leave AMA before CT of Ab/pelvis completed/Risks-benefits explained to pt per nursing 02/16/22 13:55 02/16/22 15:04 Pt walked out of ER wo difficulty Counseled pt/family regarding: diagnosis - Departure Departure Disposition: AMA Clinical Impression: Lumbar pain Condition: Fair Critical Care Time: No Referrals: CHRISTOFER BAUMANN [Primary Care Provider] - Follow up/PCP as directed
[2022-02-16 12:02] LABS: Epithelial Cells RARE /HPF (FEW); Mucus SLIGHT /HPF (NEGATIVE)
[2022-02-16 12:04] LABS: Appearance CLEAR (CLEAR); Bilirubin NEGATIVE (NEGATIVE); Glucose NEGATIVE (NEGATIVE); Ketones NEGATIVE (NEGATIVE); Nitrite NEGATIVE (NEGATIVE); Ph 5.5 (5-6); Protein,Urine Dip 100 (Negative); RBC MODERATE Ery/ul (0-5); Specific Gravity >=1.030 (1.005-1.025)
[2022-02-16 12:05] LABS: Dipstick done @ ? MAIN LAB; Urobilinogen 0.2 mg/dL (0-1)
[2022-02-16 12:06] LABS: Urine Cultured Indicated? NO
[2022-02-16] MEDS ORDERED: Ketamine HCl 50 MG/ML IM ONE (12:29)
[2022-02-16 12:46] VITALS: BP 130/80; PULSE 70
[2022-02-16 13:57] VITALS: O2SAT 96
== END 2022-02-16 13:26 | disposition left against medical advice (07) ==
LOC: ED 10:13
DX: M54.50 Low back pain, unspecified (principal); Z79.899 Other long term (current) drug therapy
CPT/HCPCS: 36000; 81015; 81025; 96372; 96374; 99284

== ENCOUNTER 2022-04-13 10:55 | Day surgery (SDC) | payer OTHER ==
[2012-02-09 19:21] VITALS: BP 148/97
[2022-04-13] MEDS ORDERED: Sodium Chloride 0.9(Preservative Free) 10 ML IJ ONE (10:56)
[2022-04-13] MEDS ORDERED: Depo-Medrol 40 MG/ML IM ONE (10:56)
[2022-04-13] MEDS ORDERED: Xylocaine 1% Vial 30 ML PF IJ ONE (10:56)
[2022-04-13] MEDS ORDERED: Versed 2 MG/2 ML Injection ONE (11:59)
[2022-04-13] MEDS ORDERED: Versed 2 MG/2 ML Injection IV ONE (12:30)
[2022-04-13] MEDS ORDERED: DIPRIVAN 200 MG/20 ML IV ONE ×2 (13:09→13:33)
--- NOTE | 2022-04-13 14:56 | XRAY ---
33 seconds of fluoroscopy was used in surgery for a lumbar JOÃO.
--- NOTE | 2022-04-13 15:02 | XRAY ---
Indication: Lumbar JOÃO. Intraoperative fluoroscopy provided for 33 seconds. 3 digital spot images submitted for interpretation demonstrates posterior needle tip projecting posterior to L4-L5 interspace. Small amount of contrast injected for needle tip placement. Correlate with intraoperative findings/report.
[2022-04-13] MEDS ORDERED: Lactated Ringers 1,000 ML IV ONE (16:45)
== END 2022-04-13 13:46 | disposition home or self-care (01) ==
LOC: SDC-PAIN 10:55
PROVIDERS: ATTEND Psychiatry & Neurology Pain Medicine
DX: M54.16 Radiculopathy, lumbar region (principal); Z79.899 Other long term (current) drug therapy
CPT/HCPCS: 62323; 72100; 77003; 81025; J1030; J2001; J2250; J2704; Q9966

== ENCOUNTER 2023-01-21 21:18 | Emergency (ER) | payer OTHER ==
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
[2023-01-21] MEDS ORDERED: TYLENOL 325 MG PO ONE (21:47)
[2023-01-21 22:04] VITALS: RESP 18; TEMP 98.1; O2SAT 96
[2023-01-21] MEDS ORDERED: TYLENOL 325 MG ONE (22:05)
[2023-01-21 22:22] LABS: HCG URINE TEST NEGATIVE (NEGATIVE)
--- NOTE | 2023-01-22 00:06 | XRAY ---
CLINICAL HISTORY:pain COMPARISON:None. TECHNIQUE:CT scan of the lumbar spine was performed without contrast. Axial images were obtained with reconstructed coronal and sagittal images and submitted for interpretation. FINDINGS: Lumbar scoliosis with convexity to the left. Normal vertebral bodies height. Intact vertebral bodies and neural arches. No definite fractures could be detected. Spondylodegenerative changes are seen in the form of marginal osteophytic lippings of the vertebral end plates. Multilevel facetal arthropathy is seen. Segmental disc analysis level by level: L1- L2: There is no significant disc herniation or neural foraminal narrowing visualized. Central canal is unremarkable. No sign of lateral recess stenosis. Nerve roots are normal. L2- L3: There is no significant disc herniation or neural foraminal narrowing visualized. Central canal is unremarkable. No sign of lateral recess stenosis. Nerve roots are normal. L3- L4: Posterior central disc protrusion with caudal migration osteophyte complex is seen as well as bilateral facetal arthropathy causing moderate narrowing of the spinal canal, bilateral severe narrowing of the lateral recesses, and mildly encroaching on both neural exit foramina. Nerve roots are normal. L4- L5: Diffuse posterior disc bulge osteophyte complex is seen causing bilateral narrowing of the lateral recesses. There is no significant neural foraminal narrowing visualized. Nerve roots are normal. L5- S1: Diffuse posterior disc bulge osteophyte complex is seen as well as bilateral facetal arthropathy causing bilateral narrowing of the lateral recesses and neural exit foramina more on the left. compressing the nerve roots more on the left. IMPRESSION: 1. No gapping/displaced fracture is seen. 2. Lumbar scoliosis with convexity to the left. 3. Spondylodegenerative changes with multilevel disc bulges as above detailed. Electronically Signed by: Roscoe Lucas MD. (01/21/2023 23:04:40 COVERSTITCH BINDER)
[2023-01-22 00:38] VITALS: BP 150/77; PULSE 92
--- NOTE | 2023-01-22 07:36 | XRAY ---
Indication: Pain following injury. Comparison: July 06, 2015 3 view right knee obtained. Again no bony, articular, or soft tissue abnormalities.
--- NOTE | 2023-01-22 07:38 | XRAY ---
Indication: Pain following injury. Comparison: None 3 view right lower leg demonstrates tiny posterior talus accessory ossicle, 7 mm calcaneal bone island, and tiny posterior calcaneal spur. No other bony, articular, or soft tissue abnormalities.
== END 2023-01-22 00:31 | disposition home or self-care (01) ==
LOC: ED 21:18
DX: S80.01XA Contusion of right knee, initial encounter (principal); S80.811A Abrasion, right lower leg, initial encounter; V03.09XA Pedestrian with other conveyance injured in collision with car, pick-up truck or van in nontraffic accident, initial encounter; Y92.481 Parking lot as the place of occurrence of the external cause; M54.50 Low back pain, unspecified; I10 Essential (primary) hypertension; Z79.899 Other long term (current) drug therapy
CPT/HCPCS: 72131; 73562; 73590; 81025; 99283; A9270-GY